=== PATIENT | male | born 1935 | race Caucasian/White ===

== ENCOUNTER 2020-02-05 14:32 | Inpatient (IN) | payer MEDICARE, BC ==
[~2020-02-05] VITALS: Ht 188 cm; Wt 97.5 kg
[2020-02-05] MEDS ORDERED: SODIUM CHLORIDE FLUSH 10ML SYR IVF ONE (15:00)
--- NOTE | 2020-02-05 15:00 | NUR ---
BIB [facility] FOR NAUSEA STARTING LAST NIGHT, CP X1 HOUR AND SOB. STS FORGOT MEDS IN [facility] 2 DAYS AGO. HX HTN, PE/DVT/AFIB/MO X5. GIVEN 1 NITRO, 324 ASA, 250 ML NS, AND 12.5 FENERGAN EN ROUTE
--- NOTE | 2020-02-05 15:01 | NUR ---
REPORT RECEIVED FROM ELLA MIR RN. PLAN OF CARE DISCUSSED
[2020-02-05 15:15] LABS: BASOPHILS # (AUTO) 0.03 x10^3/uL (0-0.1); BASOPHILS % (AUTO) 1 % (0-1); EOSINOPHILS # (AUTO) 0.06 x10^3/uL (0-0.4); EOSINOPHILS % (AUTO) 1 % (1-7); LYMPHOCYTES # (AUTO) 0.94 x10^3/uL (1-3.4); LYMPHOCYTES % (AUTO) 14 % (22-44); MD NO; MEAN CORPUSCULAR HEMOGLOBIN 31.2 pg (27.5-34.5); MEAN CORPUSCULAR HGB CONC 33.3 g/dL (33.2-36.2); MEAN CORPUSCULAR VOLUME 93.8 fL (81-97); MEAN PLATELET VOLUME 7.8 fL (7.4-10.4); MONOCYTES # (AUTO) 0.41 x10^3/uL (0.2-0.8); MONOCYTES % (AUTO) 6 % (2-9); NEUTROPHILS # (AUTO) 5.41 x10^3/uL (1.8-6.8); NEUTROPHILS % (AUTO) 79 % (42-75); PLATELET COUNT 147 x10^3/uL (130-400); RED BLOOD COUNT 4.99 x10^6/uL (4.38-5.82); RED CELL DISTRIBUTION WIDTH 15.3 % (9.4-14.8)
[2020-02-05 15:26] LABS: ALANINE AMINOTRANSFERASE 15 U/L (12-78); ALBUMIN 3.5 g/dL (3.4-5.0); ANION GAP 9 mmol/L (5-15); CHLORIDE 109 mmol/L (98-107); CREATININE 0.72 mg/dL (0.7-1.3)
[2020-02-05 15:30] LABS: ALKALINE PHOSPHATASE 55 U/L (45-117); BILIRUBIN,TOTAL 0.6 mg/dL (0.2-1.0); TOTAL PROTEIN 7.4 g/dL (6.4-8.2); TROPONIN I < 0.015 ng/mL (0.000-0.045)
[2020-02-05] MEDS ORDERED: NITROGLYCERIN SINGLE TAB 0.4 MG SL ONE (15:34)
[2020-02-05] MEDS ORDERED: ONDANSETRON 2MG/ML, 2ML ONE (15:36)
--- NOTE | 2020-02-05 15:40 | NUR ---
PATIENT C/O CHEST PAIN, HR AT 160. C/O N/V AT THIS TIME. ERP NOTIFIED.
--- NOTE | 2020-02-05 15:41 | NUR ---
PATIENT MEDICATED FOR CHEST PAIN AND NAUSEA, REPEAT EKG DONE. ERP AWARE.
[2020-02-05 15:50] LABS: D-DIMER 2.96 ug/mlFEU (0.00-0.52); INTERNATIONAL NORMALIZED RATIO 1.39 (0.93-1.1); PROTHROMBIN TIME 14.8 Seconds (9.6-11.5)
[2020-02-05] MEDS ORDERED: DILTIAZEM 5 MG/ML, 5ML ONE (15:50)
[2020-02-05] MEDS ORDERED: NITROGLYCERIN 0.4 MG BOTTLE (25 TABS) SL PRN (16:00)
[2020-02-05] MEDS ORDERED: DILTIAZEM 125 MG in SODIUM CHLORIDE 0.9% 100 ML IV SCH (16:00)
[2020-02-05] MEDS ORDERED: DILTIAZEM 5 MG/ML, 5ML IVPush ONE (16:00)
[2020-02-05] MEDS ORDERED: ONDANSETRON 2MG/ML, 2ML IVPush ONE (16:00)
--- NOTE | 2020-02-05 16:00 | NUR ---
IV PUSH CARDIZEM GIVEN, WAITING FOR CARDIZEM DRIP TO ARRIVE FROM PHARMACY
--- NOTE | 2020-02-05 16:15 | NUR ---
PATIENT IN CT
[2020-02-05] MEDS ORDERED: OMNIPAQUE 350 MG/ML, 100ML BOTTLE ONE (16:32)
[2020-02-05] MEDS ORDERED: MAALOX/HYOSCYAMINE/LIDOCAINE 45 ML BTL ONE (16:55)
[2020-02-05] MEDS ORDERED: MAALOX/HYOSCYAMINE/LIDOCAINE 45 ML BTL PO ONE (17:00)
--- NOTE | 2020-02-05 17:04 | NUR ---
IV CARDIZEM DRIP STARTED
--- NOTE | 2020-02-05 17:24 | NUR ---
PATIENT AMBULATORY WITH STEADY GAIT TO RESTROOM
[2020-02-05] MEDS ORDERED: BACL20TA PO (17:25)
[2020-02-05] MEDS ORDERED: GLIM2TAB7 PO (17:25)
[2020-02-05] MEDS ORDERED: WARF-36 PO (17:25)
[2020-02-05] MEDS ORDERED: CLOP75TA PO (17:26)
[2020-02-05] MEDS ORDERED: LOSA50TA14 PO (17:26)
[2020-02-05] MEDS ORDERED: ATOR-2 PO (17:26)
[2020-02-05] MEDS ORDERED: GABA300C10 PO (17:27)
[2020-02-05] MEDS ORDERED: GLIM2TAB PO (17:27)
[2020-02-05] MEDS ORDERED: OXYB5TAB33 PO (17:28)
[2020-02-05] MEDS ORDERED: [UNRECOGNIZED DRUG - OTHER] PO (17:28)
--- NOTE | 2020-02-05 17:30 | NUR ---
IV CARDIZEM DRIP STARTED AGAIN, ALL MONITORING BACK IN PLACE
[2020-02-05] MEDS ORDERED: ACETAMINOPHEN 325 MG TABLET PO PRN (18:00)
[2020-02-05] MEDS ORDERED: ONDANSETRON 2MG/ML, 2ML IVPush PRN (18:00)
[2020-02-05] MEDS ORDERED: LIDODERM 5% PATCH TD PRN (18:00)
[2020-02-05] MEDS ORDERED: BISACODYL 10 MG SUPP PR PRN (18:00)
[2020-02-05] MEDS ORDERED: ONDANSETRON ODT 4 MG PO PRN (18:00)
[2020-02-05] MEDS ORDERED: hydrALAzine 20 MG/ML, 1ML IVPush PRN (18:00)
[2020-02-05] MEDS ORDERED: POLYETHYLENE GLYCOL 17 GM PACKET PO PRN (18:00)
--- NOTE | 2020-02-05 18:16 | NUR ---
REPORT GIVEN TO JACKIE NAVARRO. PLAN OF CARE DISCUSSED
[2020-02-05 18:34] VITALS: BP 168/112
[2020-02-05 18:46] VITALS: BP 151/97
[2020-02-05 18:49] LABS: FREE T4 (FREE THYROXINE) 1.27 ng/dL (0.76-1.46); TROPONIN I < 0.015 ng/mL (0.000-0.045)
[2020-02-05] MEDS ORDERED: WARFARIN 2 MG TABLET PO-COUM ONE (19:00)
[2020-02-05] MEDS: LIDODERM REMOVE PATCH NOTE XX SCH (19:00)
[2020-02-05] MEDS ORDERED: WARFARIN 5 MG TABLET PO-COUM ONE (19:00)
[2020-02-05 19:51] VITALS: BP 158/82
[2020-02-05] MEDS: FAMOTIDINE 20 MG TABLET PO SCH (21:17)
[2020-02-05] MEDS: BACLOFEN 10 MG TABLET PO SCH (21:18)
[2020-02-05] MEDS: ATORVASTATIN 80 MG TABLET PO SCH (21:18)
[2020-02-05] MEDS: INSULIN LISPRO 100 UNITS/ML, PEN SQ-INSULIN SCH (21:20)
[2020-02-06 00:05] LABS: TROPONIN I < 0.015 ng/mL (0.000-0.045)
[2020-02-06 03:06] VITALS: BP 157/80
[2020-02-06] MEDS: LIDODERM REMOVE PATCH NOTE XX SCH ×2 (06:13→19:00)
[2020-02-06] MEDS: FAMOTIDINE 20 MG TABLET PO SCH ×2 (06:31→17:05)
[2020-02-06 07:18] VITALS: BP 164/81
[2020-02-06] MEDS: INSULIN LISPRO 100 UNITS/ML, PEN SQ-INSULIN SCH ×4 (08:21→20:43)
[2020-02-06] MEDS: LOSARTAN 100 MG TAB PO SCH (08:23)
[2020-02-06] MEDS: OXYBUTYNIN CHLORIDE 5 MG TABLET PO SCH (08:23)
[2020-02-06] MEDS: GLIMEPIRIDE 1 MG TABLET PO SCH (08:23)
[2020-02-06] MEDS: GABAPENTIN 300 MG CAPSULE PO SCH (08:24)
[2020-02-06] MEDS: BACLOFEN 10 MG TABLET PO SCH ×2 (08:24→21:00)
[2020-02-06] MEDS ORDERED: CLOPIDOGREL 75 MG TABLET PO SCH (09:00)
[2020-02-06] MEDS ORDERED: WARFARIN 5 MG TABLET PO-COUM SCH (09:00)
[2020-02-06] MEDS ORDERED: REGADENOSON 0.4 MG/5 ML SYRINGE ONE (09:03)
[2020-02-06 09:12] LABS: BASOPHILS # (AUTO) 0.04 x10^3/uL (0-0.1); BASOPHILS % (AUTO) 1 % (0-1); EOSINOPHILS % (AUTO) 1 % (1-7); LYMPHOCYTES # (AUTO) 1.22 x10^3/uL (1-3.4); LYMPHOCYTES % (AUTO) 16 % (22-44); MD NO; MEAN CORPUSCULAR HEMOGLOBIN 31.3 pg (27.5-34.5); MEAN CORPUSCULAR HGB CONC 33.2 g/dL (33.2-36.2); MEAN CORPUSCULAR VOLUME 94.2 fL (81-97); MEAN PLATELET VOLUME 7.5 fL (7.4-10.4); MONOCYTES # (AUTO) 0.45 x10^3/uL (0.2-0.8); MONOCYTES % (AUTO) 6 % (2-9); NEUTROPHILS # (AUTO) 5.76 x10^3/uL (1.8-6.8); NEUTROPHILS % (AUTO) 76 % (42-75); PLATELET COUNT 170 x10^3/uL (130-400); RED CELL DISTRIBUTION WIDTH 15.6 % (9.4-14.8)
[2020-02-06 09:24] LABS: INTERNATIONAL NORMALIZED RATIO 1.48 (0.93-1.1); PROTHROMBIN TIME 15.7 Seconds (9.6-11.5)
[2020-02-06 09:25] LABS: ANION GAP 9 mmol/L (5-15); CALCIUM 8.8 mg/dL (8.5-10.1); CHLORIDE 110 mmol/L (98-107); CHOLESTEROL, TOTAL 205 mg/dL (140-239); CREATININE 0.77 mg/dL (0.7-1.3); TRIGLYCERIDES 96 mg/dL (50-200); VLDL CHOLESTEROL 19 mg/dL (0-25)
[2020-02-06 09:27] LABS: CHOL/HDL RATIO 6.2; HDL CHOL % 16 % (26-37); HDL CHOLESTEROL (DIRECT) 33 mg/dL (40-60); LDL CHOLESTEROL,CALCULATED 153 mg/dL (54-169); LDL/HDL RATIO 4.6 (0.5-3.0)
[2020-02-06] MEDS: DILTIAZEM 125 MG in SODIUM CHLORIDE 0.9% 100 ML IV SCH (10:50)
[2020-02-06 12:47] VITALS: BP 112/64
[2020-02-06 14:40] VITALS: BP 130/68
[2020-02-06] MEDS: OXYcodone IR 5MG TABLET PO PRN (17:34)
[2020-02-06] MEDS ORDERED: WARFARIN 7.5 MG TABLET PO-COUM ONE (18:00)
[2020-02-06 19:30] VITALS: BP 139/82
[2020-02-06] MEDS: ATORVASTATIN 80 MG TABLET PO SCH (21:00)
[2020-02-07] MEDS: ZOLPIDEM 5MG TABLET PO PRN ×2 (00:59→20:39)
[2020-02-07 01:05] VITALS: BP 137/84
[2020-02-07 05:27] LABS: INTERNATIONAL NORMALIZED RATIO 1.56 (0.93-1.1); PROTHROMBIN TIME 16.6 Seconds (9.6-11.5)
[2020-02-07 05:28] LABS: BASOPHILS # (AUTO) 0.03 x10^3/uL (0-0.1); BASOPHILS % (AUTO) 0 % (0-1); EOSINOPHILS # (AUTO) 0.17 x10^3/uL (0-0.4); EOSINOPHILS % (AUTO) 2 % (1-7); LYMPHOCYTES # (AUTO) 1.88 x10^3/uL (1-3.4); LYMPHOCYTES % (AUTO) 19 % (22-44); MD NO; MEAN CORPUSCULAR HEMOGLOBIN 31.1 pg (27.5-34.5); MEAN CORPUSCULAR HGB CONC 33.1 g/dL (33.2-36.2); MEAN CORPUSCULAR VOLUME 93.8 fL (81-97); MEAN PLATELET VOLUME 8.1 fL (7.4-10.4); MONOCYTES # (AUTO) 0.62 x10^3/uL (0.2-0.8); MONOCYTES % (AUTO) 6 % (2-9); NEUTROPHILS # (AUTO) 7.08 x10^3/uL (1.8-6.8); NEUTROPHILS % (AUTO) 72 % (42-75); PLATELET COUNT 163 x10^3/uL (130-400); RED BLOOD COUNT 4.92 x10^6/uL (4.38-5.82); RED CELL DISTRIBUTION WIDTH 15.9 % (9.4-14.8)
[2020-02-07 05:31] LABS: ANION GAP 5 mmol/L (5-15); CALCIUM 9.3 mg/dL (8.5-10.1); CHLORIDE 110 mmol/L (98-107)
[2020-02-07 05:34] LABS: CREATININE 0.98 mg/dL (0.7-1.3)
[2020-02-07] MEDS: LIDODERM REMOVE PATCH NOTE XX SCH ×2 (06:15→18:24)
[2020-02-07] MEDS: FAMOTIDINE 20 MG TABLET PO SCH ×2 (06:27→16:06)
[2020-02-07] MEDS: INSULIN LISPRO 100 UNITS/ML, PEN SQ-INSULIN SCH ×4 (07:00→20:42)
[2020-02-07] MEDS: GLIMEPIRIDE 1 MG TABLET PO SCH (07:54)
[2020-02-07] MEDS: LOSARTAN 100 MG TAB PO SCH (07:54)
[2020-02-07] MEDS: BACLOFEN 10 MG TABLET PO SCH ×2 (07:54→20:39)
[2020-02-07] MEDS: OXYBUTYNIN CHLORIDE 5 MG TABLET PO SCH (07:54)
[2020-02-07] MEDS: GABAPENTIN 300 MG CAPSULE PO SCH (07:54)
[2020-02-07 07:57] VITALS: BP 151/91
[2020-02-07] MEDS ORDERED: FENTANYL PF 100 MCG/2ML ONE (07:58)
[2020-02-07] MEDS ORDERED: LIDOCAINE-MPF 2% ,5ML ONE (07:59)
[2020-02-07] MEDS ORDERED: SUCCINYLCHOLINE 20 MG/ML, 10ML ONE (07:59)
[2020-02-07] MEDS ORDERED: PROPOFOL 10 MG/ML, 20ML ONE (07:59)
[2020-02-07] MEDS ORDERED: OXYcodone 5 MG/5 ML ORAL.SOL UDC PO PRN (08:30)
[2020-02-07] MEDS ORDERED: MORPHINE SULFATE 4 MG/ML, 1ML IVPush PRN (08:30)
[2020-02-07] MEDS ORDERED: PROMETHAZINE 25 MG/ML, 1ML IV PRN (08:30)
[2020-02-07] MEDS ORDERED: FENTANYL PF 100 MCG/2ML IV PRN (08:30)
[2020-02-07] MEDS: DILTIAZEM 125 MG in SODIUM CHLORIDE 0.9% 100 ML IV SCH (12:59)
[2020-02-07 14:40] VITALS: BP 130/81
[2020-02-07] MEDS ORDERED: WARFARIN 7.5 MG TABLET PO-COUM ONE (18:00)
[2020-02-07 19:35] VITALS: BP 136/72
[2020-02-07] MEDS: ATORVASTATIN 80 MG TABLET PO SCH (20:39)
[2020-02-07] MEDS: OXYcodone IR 5MG TABLET PO PRN (20:41)
[2020-02-08 01:35] VITALS: BP 146/67
[2020-02-08 04:50] LABS: BASOPHILS # (AUTO) 0.02 x10^3/uL (0-0.1); BASOPHILS % (AUTO) 0 % (0-1); EOSINOPHILS # (AUTO) 0.16 x10^3/uL (0-0.4); EOSINOPHILS % (AUTO) 2 % (1-7); LYMPHOCYTES # (AUTO) 1.98 x10^3/uL (1-3.4); LYMPHOCYTES % (AUTO) 23 % (22-44); MD NO; MEAN CORPUSCULAR HEMOGLOBIN 31.4 pg (27.5-34.5); MEAN CORPUSCULAR HGB CONC 33.1 g/dL (33.2-36.2); MEAN CORPUSCULAR VOLUME 94.8 fL (81-97); MEAN PLATELET VOLUME 8.2 fL (7.4-10.4); MONOCYTES # (AUTO) 0.62 x10^3/uL (0.2-0.8); MONOCYTES % (AUTO) 7 % (2-9); NEUTROPHILS # (AUTO) 5.81 x10^3/uL (1.8-6.8); NEUTROPHILS % (AUTO) 68 % (42-75); PLATELET COUNT 150 x10^3/uL (130-400); RED BLOOD COUNT 4.81 x10^6/uL (4.38-5.82); RED CELL DISTRIBUTION WIDTH 15.6 % (9.4-14.8)
[2020-02-08 04:54] LABS: INTERNATIONAL NORMALIZED RATIO 1.62 (0.93-1.1); PROTHROMBIN TIME 17.3 Seconds (9.6-11.5)
[2020-02-08 04:58] LABS: ANION GAP 8 mmol/L (5-15); CALCIUM 8.8 mg/dL (8.5-10.1); CHLORIDE 109 mmol/L (98-107)
[2020-02-08 04:59] LABS: CREATININE 0.76 mg/dL (0.7-1.3)
[2020-02-08] MEDS: LIDODERM REMOVE PATCH NOTE XX SCH (07:00)
[2020-02-08] MEDS: INSULIN LISPRO 100 UNITS/ML, PEN SQ-INSULIN SCH ×3 (07:00→16:00)
[2020-02-08 07:55] VITALS: BP 152/82
[2020-02-08] MEDS: GLIMEPIRIDE 1 MG TABLET PO SCH (08:54)
[2020-02-08] MEDS: BACLOFEN 10 MG TABLET PO SCH (08:54)
[2020-02-08] MEDS: OXYBUTYNIN CHLORIDE 5 MG TABLET PO SCH (08:54)
[2020-02-08] MEDS: LOSARTAN 100 MG TAB PO SCH (08:54)
[2020-02-08] MEDS: GABAPENTIN 300 MG CAPSULE PO SCH (08:54)
[2020-02-08] MEDS ORDERED: DILTIAZEM 120 MG CAP.ER.24H PO SCH (09:00)
[2020-02-08] MEDS: FAMOTIDINE 20 MG TABLET PO SCH ×2 (09:06→17:12)
[2020-02-08] MEDS ORDERED: FAMO20TA7 PO (09:59)
[2020-02-08] MEDS ORDERED: DILT120C48 PO (09:59)
[2020-02-08 13:32] VITALS: BP 129/69
[2020-02-08] MEDS ORDERED: WARFARIN 7.5 MG TABLET PO-COUM ONE (18:00)
== END 2020-02-08 18:38 | disposition home or self-care (01) | DRG 392 ==
LOC: ED 16:50 → EDIP 16:58 → ED 17:14 → 5SO 18:28 → UNDODISIN 02-08 15:34
PROVIDERS: ADMIT Internal Medicine; ATTEND Internal Medicine
PROC: BD41ZZZ Ultrasonography of Esophagus (ICD-10-PCS; 2020-02-07)
PROC: 0DB48ZX Excision of Esophagogastric Junction, Via Natural or Artificial Opening Endoscopic, Diagnostic (ICD-10-PCS; principal; 2020-02-07 09:00)
DX: K22.9 Disease of esophagus, unspecified (principal); I24.9 Acute ischemic heart disease, unspecified; E11.9 Type 2 diabetes mellitus without complications; I10 Essential (primary) hypertension; G89.29 Other chronic pain; I48.91 Unspecified atrial fibrillation; I25.10 Atherosclerotic heart disease of native coronary artery without angina pectoris; I25.2 Old myocardial infarction; Z86.711 Personal history of pulmonary embolism; Z86.718 Personal history of other venous thrombosis and embolism; Z95.0 Presence of cardiac pacemaker; Z87.891 Personal history of nicotine dependence
CPT/HCPCS: 36415; 71045; 71275; 78452; 80048; 80053; 80061; 82962; 83036; 83690; 83880; 84439; 84443; 84484; 85025; 85379; 85610; 85730; 88172; 88173; 88177; 88184; 88185; 88305; 93005; 93017; 93306; 96374; 96375; G0378; J2405; J2704; J2785; J3010; Q9967; A9502; C9898; J0330; J1815